=== PATIENT | male | born 1955 | race Caucasian/White ===

== ENCOUNTER 2019-01-17 07:13 | Emergency (ER) | payer SELFPAY ==
[2019-01-17 07:30] VITALS: BP 163/105
--- NOTE | 2019-01-17 07:47 | UC ---
Skin Complaint HPI - HPI Summary HPI Summary: The patient is a 63-year-old male has been treating his left foot for tenia pedis 1-2 weeks. Now his left middle toe is red and swollen and painful. He denies any fever or chills. He denies any red streaks going up his left leg. No nausea vomiting or diarrhea. - History of Current Complaint Chief Complaint: UCSkin Time Seen by Provider: 01/17/19 07:36 Stated Complaint: INFECTED TOE Hx Obtained From: Patient Onset/Duration: Gradual Onset Timing: Constant Onset Severity: Mild Current Severity: Mild Pain Intensity: 1 Pain Scale Used: 0-10 Numeric Location: Discrete, Foot (Left) - thrid toe Character: Swelling, Pruritus, Pain, Redness Aggravating Factor(s): Other - wt bearing Alleviating Factor(s): Nothing Associated Signs & Symptoms: Positive: Rash Related History: Trauma - Allergy/Home Medications Allergies/Adverse Reactions: Allergies Allergy/AdvReac Type Severity Reaction Status Date / Time No Known Allergies Allergy Verified 01/17/19 07:30 Home Medications: Home Medications Aspirin [Aspir-Shara] 1 dose PO ONCE PRN 01/17/19 [History Confirmed 01/17/19] PMH/Surg Hx/FS Hx/Imm Hx Previously Healthy: Yes - Surgical History Surgical History: Yes Surgery Procedure, Year, and Place: right arm - cyst removed - Family History Known Family History: Positive: Hypertension - Social History Alcohol Use: Rare Substance Use Type: None Smoking Status (MU): Never Smoked Tobacco Review of Systems All Other Systems Reviewed And Are Negative: Yes Constitutional: Positive: Negative Skin: Positive: Rash Eyes: Positive: Negative ENT: Positive: Negative Respiratory: Positive: Negative Cardiovascular: Positive: Negative Gastrointestinal: Positive: Negative Genitourinary: Positive: Negative Motor: Positive: Negative Neurovascular: Positive: Negative Musculoskeletal: Positive: Negative Neurological: Positive: Negative Psychological: Positive: Negative Physical Exam Triage Information Reviewed: Yes Appearance: Well-Appearing, No Pain Distress, Well-Nourished Vital Signs: Initial Vital Signs Temp 97.2 F 01/17/19 07:25 Pulse 98 01/17/19 07:25 Resp 16 01/17/19 07:25 BP 163/105 01/17/19 07:25 Pulse Ox 96 01/17/19 07:25 Vital Signs Reviewed: Yes Eyes: Positive: Conjunctiva Clear ENT: Positive: Hearing grossly normal. Negative: Nasal congestion, Nasal drainage, Trismus, Muffled voice, Hoarse voice Neck: Positive: Supple, Nontender, No Lymphadenopathy Respiratory: Positive: Lungs clear, Normal breath sounds, No respiratory distress, No accessory muscle use Cardiovascular: Positive: RRR, No Murmur Musculoskeletal: Positive: ROM Intact, No Edema Neurological Exam: Normal Psychological Exam: Normal Skin Exam: Other - both feet with evidence of inter digital tinea pedis. Macerated btw left 2 and third toes. Third toe with fusiform swelling and erthyema Course/Dx - Diagnoses Provider Diagnosis: Tinea pedis of both feet, Cellulitis of toe of left foot, Elevated BP without diagnosis of hypertension Discharge - Sign-Out/Discharge Documenting (check all that apply): Patient Departure All imaging exams completed and their final reports reviewed: No Studies - Discharge Plan Condition: Stable Disposition: HOME Prescriptions: Cephalexin CAP* [Keflex CAP*] 500 mg PO QID #28 cap Patient Education Materials: Athlete's Foot (ED), Cellulitis (DC) Referrals: [facility] [place] [facility] REFERRAL [Outside] - 2 Weeks (bp recheck in 2-12 weeks) Additional Instructions: for the next two weeks I suggest Twice daily soaks of both feet in epsom salts (10-15 minutes) gently dry apply tinactin btw toes recheck if cellulitis not improved in 2-3 days recheck BP in 2-12 weeks - Billing Disposition and Condition Condition: STABLE Disposition: Home
== END 2019-01-17 07:55 | disposition home or self-care (01) ==
LOC: UCEAST 07:13
DX: B35.3 Tinea pedis (principal); L03.032 Cellulitis of left toe; R03.0 Elevated blood-pressure reading, without diagnosis of hypertension
CPT/HCPCS: 99202; G0463

== ENCOUNTER 2021-05-16 09:57 | Inpatient (IN) ==
[2021-05-16] MEDS ORDERED: NS 0.9% 1000 ml BAG 1,000 ML IV ONE (11:13)
[2021-05-16 11:38] LABS: ABS Lymphocytes 0.4 10^3/ul (1.0-4.8); ABS Neutrophils 6.4 10^3/ul (1.5-7.7); Hematocrit 44 % (42-52); Hemoglobin 14.8 g/dL (14.0-18.0); Lymphocyte % 5.1 %; Mean Corpuscular HGB Conc 34 g/dL (31-36); Mean Corpuscular Hemoglobin 28 pg (27-31); Mean Corpuscular Volume 84 fL (80-94); Platelet Count 376 10^3/uL (150-450); Red Blood Count 5.26 10^6 /uL (4.18-5.48); Red Cell Distribution Width 13 % (10-15); White Blood Count 7.9 10^3/uL (3.5-10.8)
[2021-05-16 11:55] LABS: Albumin 4.1 g/dL (3.2-5.2); C Reactive Protein 155.53 mg/L (<8.01); Calcium 9.9 mg/dL (8.6-10.3); Globulin 4.2 g/dL (2-4); Potassium 3.8 mmol/L (3.5-5.0); Total Bilirubin 0.9 mg/dL (0.2-1.0); Total Protein 8.3 g/dL (6.4-8.9)
[2021-05-16] MEDS ORDERED: Ondansetron 4 mg VIAL 2 MG/ML 2 ml VIAL IV ONE (12:07)
[2021-05-16] MEDS ORDERED: Iohexol 300 (CONTRAST) 10 ML SDV IV ONE (13:33)
[2021-05-16] MEDS ORDERED: Lactated Ringers 1000 ml BAG 1,000 ML IV ONE ×2 (14:46→16:07)
[2021-05-16 16:31] LABS: Magnesium 2.1 mg/dL (1.9-2.7)
[2021-05-16 18:00] LABS: Rapid COVID-19 Molecular Undetected (Undetected)
[2021-05-16] MEDS ORDERED: KCL 20 MEQ/100 ML IVPREMIX 20 MEQ/100 ML BAG IV ONE (20:38)
[2021-05-16] MEDS ORDERED: Heparin 5000 UNITS/ML 1 mL VIAL SUBCUT SCH (22:00)
[2021-05-16] MEDS: Enoxaparin 40 MG/0.4 ML SYR SUBCUT SCH (22:35)
[2021-05-16] MEDS: Morphine 2 MG/ML SYRINGE IV PRN (22:35)
[2021-05-16] MEDS: Ondansetron 4 mg VIAL 2 MG/ML 2 ml VIAL IV PRN (22:36)
[2021-05-16] MEDS ORDERED: Diatrizoate Meg/Sod(CONTRAST) 30 ML ORAL.SOLN PO ONE (23:00)
[2021-05-17] MEDS ORDERED: Lactated Ringers 1000 ml BAG 1,000 ML IV SCH ×2 (04:00)
[2021-05-17 05:56] LABS: Hematocrit 39 % (42-52); Hemoglobin 13.1 g/dL (14.0-18.0); Mean Corpuscular HGB Conc 34 g/dL (31-36); Mean Corpuscular Hemoglobin 28 pg (27-31); Mean Corpuscular Volume 84 fL (80-94); Platelet Count 355 10^3/uL (150-450); Red Blood Count 4.63 10^6 /uL (4.18-5.48); Red Cell Distribution Width 13 % (10-15); White Blood Count 6.9 10^3/uL (3.5-10.8)
[2021-05-17] MEDS: Lactated Ringers 1000 ml BAG 1,000 ML IV SCH ×2 (06:06→18:19)
[2021-05-17 06:13] LABS: Calcium 8.6 mg/dL (8.6-10.3); Magnesium 2.1 mg/dL (1.9-2.7); Potassium 3.7 mmol/L (3.5-5.0)
[2021-05-17] MEDS: Morphine 2 MG/ML SYRINGE IV PRN ×2 (08:24→21:06)
[2021-05-17] MEDS ORDERED: Pneumococcal Vac 23-Polyvalent IM ONE (09:00)
[2021-05-17] MEDS ORDERED: Flu vaccine *QUAD* 2021-22* 0.5 ML SYRINGE IM ONE (09:00)
[2021-05-17] MEDS: Enoxaparin 40 MG/0.4 ML SYR SUBCUT SCH (21:07)
[2021-05-18] MEDS ORDERED: Morphine 2 MG/ML SYRINGE IV ONE (00:07)
[2021-05-18] MEDS: Morphine 2 MG/ML SYRINGE IV PRN ×2 (03:26→09:37)
[2021-05-18] MEDS: Lactated Ringers 1000 ml BAG 1,000 ML IV SCH ×2 (04:34→14:37)
[2021-05-18 05:22] LABS: ABS Lymphocytes 0.8 10^3/ul (1.0-4.8); ABS Monocytes 1.3 10^3/ul (0-0.8); ABS Neutrophils 7.4 10^3/ul (1.5-7.7); Eosinophil % 0.1 %; Hematocrit 38 % (42-52); Hemoglobin 12.5 g/dL (14.0-18.0); Lymphocyte % 8.5 %; Mean Corpuscular HGB Conc 33 g/dL (31-36); Mean Corpuscular Hemoglobin 28 pg (27-31); Mean Corpuscular Volume 84 fL (80-94); Mean Platelet Volume 6.7 fL (7.4-10.4); Platelet Count 373 10^3/uL (150-450); Red Blood Count 4.48 10^6 /uL (4.18-5.48); Red Cell Distribution Width 13 % (10-15); White Blood Count 9.5 10^3/uL (3.5-10.8)
[2021-05-18 05:46] LABS: Calcium 8.2 mg/dL (8.6-10.3); Potassium 3.8 mmol/L (3.5-5.0)
[2021-05-18] MEDS ORDERED: Pneumococcal Vac 23-Polyvalent IM ONE (09:00)
[2021-05-18] MEDS ORDERED: KCL 20 MEQ/100 ML IVPREMIX 20 MEQ/100 ML BAG IV ONE (11:31)
[2021-05-18] MEDS: Ondansetron 4 mg VIAL 2 MG/ML 2 ml VIAL IV PRN ×2 (12:19→22:49)
[2021-05-18] MEDS: Enoxaparin 40 MG/0.4 ML SYR SUBCUT SCH (22:49)
[2021-05-19] MEDS: Lactated Ringers 1000 ml BAG 1,000 ML IV SCH ×3 (00:33→23:05)
[2021-05-19 05:56] LABS: ABS Lymphocytes 1.2 10^3/ul (1.0-4.8); ABS Monocytes 1.1 10^3/ul (0-0.8); ABS Neutrophils 6.7 10^3/ul (1.5-7.7); Eosinophil % 0.2 %; Hematocrit 35 % (42-52); Hemoglobin 11.7 g/dL (14.0-18.0); Lymphocyte % 12.8 %; Mean Corpuscular HGB Conc 33 g/dL (31-36); Mean Corpuscular Hemoglobin 28 pg (27-31); Mean Corpuscular Volume 85 fL (80-94); Mean Platelet Volume 6.8 fL (7.4-10.4); Platelet Count 345 10^3/uL (150-450); Red Blood Count 4.17 10^6 /uL (4.18-5.48); Red Cell Distribution Width 13 % (10-15)
[2021-05-19 06:12] LABS: Potassium 3.7 mmol/L (3.5-5.0)
[2021-05-19] MEDS ORDERED: Lactated Ringers 1000 ml BAG 1,000 ML IV SCH (06:40)
[2021-05-19] MEDS: KCL 20 MEQ/100 ML IVPREMIX 20 MEQ/100 ML BAG IV SCH ×2 (13:27→16:47)
[2021-05-19] MEDS: Enoxaparin 40 MG/0.4 ML SYR SUBCUT SCH (21:14)
[2021-05-20] MEDS: Lactated Ringers 1000 ml BAG 1,000 ML IV SCH (03:42)
[2021-05-20 05:19] LABS: Potassium 3.6 mmol/L (3.5-5.0)
[2021-05-20] MEDS: KCL 10 MEQ/50 ML IVPREMIX 10 MEQ/50 ML BAG IV SCH ×2 (08:49→10:10)
[2021-05-20 11:14] VITALS: BP 139/94
== END 2021-05-20 15:14 | disposition home or self-care (01) | DRG 390 ==
LOC: ED 09:57 → SUATTDRO 16:02 → SSU 16:02 → ED 18:06
PROVIDERS: ADMIT Internal Medicine; ATTEND Internal Medicine